=== PATIENT | male | born 1985 | race American Indian/Alaskan Native ===

== ENCOUNTER 2016-11-28 11:45 | Emergency (ER) | payer SELFPAY ==
--- NOTE | 2016-11-28 12:12 | Emergency Department Report ---
Stated Complaint: THROW UP Time Seen by Provider: 11/28/16 12:07 - HPI History of Present Illness: PT c/o n/v/d since 0500. PT states he is throwing up bile. - ROS Review of Systems: - back pain - fever + abd pain + n/v/d - Exam Physical Exam: PT alert and appropriate abd soft and non tender no cva tenderness prakash MSE screening note: Focused history and physical exam performed. Due to findings the following was ordered: labs, meds ED Disposition for MSE Condition: Stable
[2016-11-28] MEDS: ZOFRAN ODT PO ONE (12:18)
[2016-11-28 13:11] LABS: Bilirubin,Urine NEG (Negative); Blood,Urine NEG (Negative); Ketones,Urine 20 mg/dL (Negative); Leukocyte Esterase,Urine NEG (Negative); Mucus,Urine 3+ /HPF; Nitrite,Urine NEG (Negative)
[2016-11-28 15:10] LABS: Basophils % (Auto) 0.4 % (0.0-1.8); Hematocrit 48.3 % (35.5-45.6); Hemoglobin 16.8 gm/dl (11.8-15.2); Mean Corpuscular HGB Conc 35 % (32-34); Mean Corpuscular Hemoglobin 33 pg (28-32); Mean Corpuscular Volume 94 fl (84-94); Platelet Count 285 K/mm3 (140-440); Red Blood Count 5.16 M/mm3 (3.65-5.03); Red Cell Distribution Width 12.7 % (13.2-15.2); White Blood Count 10.6 K/mm3 (4.5-11.0)
[2016-11-28 15:21] LABS: Alanine Aminotransferase 25 units/L (7-56); Albumin 4.9 g/dL (3.9-5); Albumin/Globulin Ratio 1.4 %; Alkaline Phosphatase 85 units/L (35-129); Anion Gap 20 mmol/L; BUN/Creatinine Ratio 18; Blood Urea Nitrogen 16 mg/dL (9-20); Calcium 10.5 mg/dL (8.4-10.2); Carbon Dioxide 23 mmol/L (22-30); Chloride 101.4 mmol/L (98-107); Glucose 153 mg/dL (75-100); Lipase 11 units/L (13-60); Potassium 3.8 mmol/L (3.6-5.0); Sodium 141 mmol/L (137-145); Total Protein 8.5 g/dL (6.3-8.2)
[2016-11-28] MEDS: BENTYL IM ONE (18:36)
[2016-11-28] MEDS: ZOFRAN IV ONE (18:36)
[2016-11-28] MEDS: NACL 0.9% 1000 ML 1,000 ML IV ONE (18:36)
--- NOTE | 2016-11-28 20:40 | Emergency Department Report ---
ED N/V/D HPI - General Chief complaint: Nausea/Vomiting/Diarrhea Stated complaint: THROW UP Time Seen by Provider: 11/28/16 12:07 Source: patient Mode of arrival: Ambulatory Limitations: No Limitations - History of Present Illness Initial comments: pt is a 31 y/o aam with nmh who presents for n/v/d after eating left over spaghetti last night, pt states symptoms started approximatley 30 minutes after eating leftovers, pain was 4/10 abdomina cramping with n/v /d loose food contents. pt denies fever no chills no dizziness no lightheadedness. MD complaint: nausea, vomiting, diarrhea, abdominal pain Onset/Timin -: hour(s) Description of Vomiting: food contents Description of Diarrhea: water Associated Abdominal Pain: Yes (4/10 cramping ) Location: diffuse Radiation: none Severity: moderate Pain Scale: 4 Quality: cramping, aching Consistency: intermittent Improves with: none Worsens with: eating Context: possible food poisoning, other (" I believe the spaghetti was bad ) Associated Symptoms: denies: myalgias, chest pain, fever/chills, headaches, malaise, rash, dysuria, shortness of breath, syncope, weakness - Related Data Previous Rx's Medication Instructions Recorded Last Taken Type Dicyclomine [Bentyl] 10 mg PO QID PRN #30 capsule 11/28/16 Unknown Rx Ondansetron [Zofran TAB] 4 mg PO Q8HR PRN #12 tablet 11/28/16 Unknown Rx Allergies Allergy/AdvReac Type Severity Reaction Status Date / Time No Known Allergies Allergy Verified 11/28/16 12:17 ED Review of Systems ROS: Stated complaint: THROW UP Other details as noted in HPI Constitutional: denies: chills, fever Eyes: denies: eye pain, eye discharge, vision change ENT: denies: ear pain, throat pain Respiratory: denies: cough, shortness of breath, wheezing Cardiovascular: denies: chest pain, palpitations Endocrine: no symptoms reported Gastrointestinal: abdominal pain, nausea, vomiting, diarrhea. denies: constipation, hematemesis, melena, hematochezia Genitourinary: denies: urgency, dysuria Musculoskeletal: denies: back pain, joint swelling, arthralgia Skin: denies: rash, lesions Neurological: denies: headache, weakness, paresthesias Psychiatric: denies: anxiety, depression Hematological/Lymphatic: denies: easy bleeding, easy bruising ED Past Medical Hx - Past Medical History Previous Medical History?: No - Surgical History Past Surgical History?: No - Social History Smoking Status: Never Smoker Substance Use Type: None - Medications Home Medications: Home Medications Medication Instructions Recorded Confirmed Last Taken Type Dicyclomine [Bentyl] 10 mg PO QID PRN #30 capsule 11/28/16 Unknown Rx Ondansetron [Zofran TAB] 4 mg PO Q8HR PRN #12 tablet 11/28/16 Unknown Rx ED Physical Exam - General Limitations: No Limitations General appearance: alert, in no apparent distress - Head Head exam: Present: atraumatic, normocephalic - Eye Eye exam: Present: normal appearance - ENT ENT exam: Present: normal exam, normal orophraynx, mucous membranes moist - Neck Neck exam: Present: normal inspection, full ROM - Respiratory Respiratory exam: Present: normal lung sounds bilaterally. Absent: respiratory distress, wheezes, stridor - Cardiovascular Cardiovascular Exam: Present: regular rate, normal rhythm, normal heart sounds. Absent: systolic murmur, diastolic murmur, rubs, gallop - GI/Abdominal GI/Abdominal exam: Present: soft, normal bowel sounds. Absent: distended, tenderness, guarding, rebound, rigid, organomegaly, mass, bruit, pulsatile mass , hernia - Expanded GI/Abdominal Exam Expanded GI/Abdominal exam: Absent: psoas sign, obturator sign, heel tap sign, Montoya's sign, Rovsing's sign, tenderness at Mcburney's Point, ascites - Rectal Rectal exam: Present: deferred - Extremities Exam Extremities exam: Present: normal inspection, full ROM - Back Exam Back exam: Present: normal inspection - Neurological Exam Neurological exam: Present: alert, oriented X3 - Psychiatric Psychiatric exam: Present: normal affect, normal mood - Skin Skin exam: Present: warm, dry, intact, normal color. Absent: rash ED Course Vital Signs 11/28/16 12:14 Pulse Rate 69 Respiratory 18 Rate Blood Pressure 146/89 O2 Sat by Pulse 100 Oximetry ED Medical Decision Making - Lab Data Result diagrams: 11/28/16 12:11 11/28/16 12:11 Laboratory Tests 11/28/16 11/28/16 11/28/16 12:11 12:11 12:55 WBC 10.6 RBC 5.16 H Hgb 16.8 H Hct 48.3 H MCV 94 MCH 33 H MCHC 35 H RDW 12.7 L Plt Count 285 Lymph % (Auto) 13.3 L Cataño % (Auto) 6.4 Eos % (Auto) 0.0 Baso % (Auto) 0.4 Lymph # 1.4 Cataño # 0.7 Eos # 0.0 Baso # 0.0 Seg Neutrophils % 79.9 H Seg Neutrophils # 8.4 H Sodium 141 Potassium 3.8 Chloride 101.4 Carbon Dioxide 23 Anion Gap 20 BUN 16 Creatinine 0.9 Estimated GFR > 60 BUN/Creatinine Ratio 18 Glucose 153 H Calcium 10.5 H Total Bilirubin 0.90 AST 21 ALT 25 Alkaline Phosphatase 85 Total Protein 8.5 H Albumin 4.9 Albumin/Globulin Ratio 1.4 Lipase 11 L Urine Color Patricia Urine Turbidity Clear Urine pH 7.0 Ur Specific Purvis 1.038 H Urine Protein 30 mg/dl Urine Glucose (UA) 50 Urine Ketones 20 Urine Blood Neg Urine Nitrite Neg Urine Bilirubin Neg Urine Urobilinogen 2.0 Ur Leukocyte Esterase Neg Urine WBC (Auto) 3.0 Urine RBC (Auto) 8.0 U Epithel Cells (Auto) 1.0 Urine Mucus 3+ - Medical Decision Making pt is a 31 y/o aam with nmh who presents for n/v/d after eating left over spaghetti last night, pt states symptoms started approximately 30 minutes after eating leftovers, pain was 4/10 abdomina cramping with n/v /d loose food contents. pt denies fever no chills no dizziness no lightheadedness. exam: abd bs x 4 qds abd soft nontender no rebound no bruit no hernia no signs pt is currently tolerating po without n/v/d abdominal pain now 1/10 with after medications given in ed, pt appears well nontoxic plan: dc to home with roman layne hydration instructions brat diet, will follow up with primary care doctor on 3 days return to emergency if symptoms do not improve, pt verbalized agreement and understanding of discharge plan. Critical care attestation.: If time is entered above; I have spent that time in minutes in the direct care of this critically ill patient, excluding procedure time. ED Disposition Clinical Impression: Nausea vomiting and diarrhea Disposition: DC-01 TO HOME OR SELFCARE Is pt being admited?: No Does the pt Need Aspirin: No Condition: Good Instructions: Acute Nausea and Vomiting (ED) Prescriptions: Dicyclomine [Bentyl] 10 mg PO QID PRN #30 capsule PRN Reason: abdominal pain Ondansetron [Zofran TAB] 4 mg PO Q8HR PRN #12 tablet PRN Reason: nausea and vomiting Referrals: PRIMARY CARE, [Primary Care Provider] - 3-5 Days Forms: Work/School Release Form(ED) Time of Disposition: 20:47
[2016-11-28 22:05] VITALS: BP 139/88
== END 2016-11-28 20:50 | disposition home or self-care (01) ==
LOC: ED 11:45
DX: R11.2 Nausea with vomiting, unspecified (principal); R19.7 Diarrhea, unspecified; R10.84 Generalized abdominal pain
CPT/HCPCS: 36415; 80053; 81001; 83690; 85025; 96361; 96372; 96374; 99283; J0500; J2405; J7030; Q0162

== ENCOUNTER 2018-02-06 15:49 | Emergency (ER) | payer SELFPAY ==
[2018-02-06] MEDS ORDERED: TORADOL IV ONE (19:52)
[2018-02-06] MEDS ORDERED: ZOFRAN IV ONE (19:52)
[2018-02-06] MEDS ORDERED: NACL 0.9% 1000 ML 1,000 ML IV ONE (19:52)
[2018-02-06] MEDS ORDERED: LIDOCAINE VISCOUS 2% PO ONE (19:53)
[2018-02-06] MEDS ORDERED: ALUM-MAG HYDROX-SIMETH 200-200-20MG/5ML PO ONE (19:53)
--- NOTE | 2018-02-06 19:56 | Emergency Department Report ---
ED Abdominal Pain HPI - General Chief Complaint: Abdominal Pain Stated Complaint: ABD PAIN/VOMIT Time Seen by Provider: 02/06/18 19:31 Source: patient, family Mode of arrival: Ambulatory Limitations: No Limitations - History of Present Illness Initial Comments: This is a 32-year-old male here complaining of nausea vomiting and since 12:35 PM today. He denies any fever or chills. He reports that he is having in diarrhea. She reportedly vomited 10 times and he is having diarrhea stool every 3 hours. Denies any back pain, urinary burning, frequency or urgency. Denies any headache. Denies any cough or shortness of breath. Pain is 8 out of 10 and crampy to his abdomen, generalized. Pain is intermittent and no alleviating or exacerbating factors. MD Complaint: abdominal pain, other (nausea vomiting and diarrhea) -: This afternoon Location: diffuse Radiation: none Migration to: no migration Severity: severe Severity scale (0 -10): 8 Quality: cramping Consistency: intermittent Improves With: nothing Worsens With: nothing Context: possible food poisoning Associated Symptoms: nausea, vomiting, diarrhea. denies: fever, chills, constipation, dysuria, hematemesis, hematochezia, melena, hematuria, anorexia, syncope Treatments Prior to Arrival: other (none) - Related Data Previous Rx's Medication Instructions Recorded Last Taken Type Dicyclomine [Bentyl] 10 mg PO QID PRN #30 capsule 11/28/16 Unknown Rx Ondansetron [Zofran TAB] 4 mg PO Q8HR PRN #12 tablet 11/28/16 Unknown Rx Dicyclomine [Bentyl] 40 mg PO Q8H 3 Days #9 tablet 02/06/18 Unknown Rx Famotidine [Pepcid] 40 mg PO QDAY 10 Days #10 tablet 02/06/18 Unknown Rx Promethazine [Phenergan TAB] 25 mg PO Q6HR PRN #16 tab 02/06/18 Unknown Rx Allergies Allergy/AdvReac Type Severity Reaction Status Date / Time No Known Allergies Allergy Verified 02/06/18 16:34 ED Review of Systems ROS: Stated complaint: ABD PAIN/VOMIT Other details as noted in HPI Constitutional: denies: chills, fever Eyes: denies: eye discharge ENT: denies: ear pain, throat pain, congestion Respiratory: denies: cough, shortness of breath, wheezing Cardiovascular: denies: chest pain, palpitations, edema, syncope Gastrointestinal: abdominal pain, nausea, vomiting, diarrhea. denies: hematemesis, hematochezia Genitourinary: denies: urgency, dysuria, frequency, hematuria Musculoskeletal: denies: back pain, joint swelling, arthralgia, myalgia Skin: denies: rash Neurological: denies: headache, numbness, paresthesias, confusion, abnormal gait, vertigo ED Past Medical Hx - Past Medical History Previous Medical History?: No - Surgical History Past Surgical History?: No - Family History Family history: no significant - Social History Smoking Status: Never Smoker Substance Use Type: None - Medications Home Medications: Home Medications Medication Instructions Recorded Confirmed Last Taken Type Dicyclomine [Bentyl] 10 mg PO QID PRN #30 capsule 11/28/16 Unknown Rx Ondansetron [Zofran TAB] 4 mg PO Q8HR PRN #12 tablet 11/28/16 Unknown Rx Dicyclomine [Bentyl] 40 mg PO Q8H 3 Days #9 tablet 02/06/18 Unknown Rx Famotidine [Pepcid] 40 mg PO QDAY 10 Days #10 tablet 02/06/18 Unknown Rx Promethazine [Phenergan TAB] 25 mg PO Q6HR PRN #16 tab 02/06/18 Unknown Rx ED Physical Exam - General Limitations: No Limitations General appearance: alert, in no apparent distress - Head Head exam: Present: atraumatic, normocephalic, normal inspection - Eye Eye exam: Present: normal appearance, PERRL, EOMI Pupils: Present: normal accommodation - ENT ENT exam: Present: normal orophraynx, mucous membranes dry, TM's normal bilaterally, normal external ear exam - Neck Neck exam: Present: normal inspection, full ROM. Absent: tenderness, ly mphadenopathy - Respiratory Respiratory exam: Present: normal lung sounds bilaterally. Absent: respiratory distress, chest wall tenderness - Cardiovascular Cardiovascular Exam: Present: regular rate, normal rhythm, normal heart sounds - GI/Abdominal GI/Abdominal exam: Present: soft, normal bowel sounds. Absent: distended, tenderness, guarding, rebound, rigid, organomegaly, mass - Extremities Exam Extremities exam: Present: normal inspection, full ROM, normal capillary refill, other (No cce. + 2 pulses in all extremities, no neurovascular compromise). Absent: tenderness, pedal edema, joint swelling, calf tenderness - Back Exam Back exam: Present: normal inspection, full ROM, other (Ambulates without any difficulties). Absent: tenderness, CVA tenderness (R), CVA tenderness (L) - Neurological Exam Neurological exam: Present: alert, oriented X3, normal gait - Psychiatric Psychiatric exam: Present: normal affect, normal mood - Skin Skin exam: Present: warm, dry, intact, normal color. Absent: rash ED Course Vital Signs 02/06/18 16:34 Temperature 98.3 F Pulse Rate 61 Respiratory 18 Rate Blood Pressure 138/87 O2 Sat by Pulse 98 Oximetry - Reevaluation(s) Reevaluation #1: 02/06/18 21:24 She received Bentyl 40 mg by mouth, Maalox 30 mg, lidocaine 15 mL, 1 L of normal saline, Zofran 8 mg IV and he said he is feeling a lot better. Awaiting abdominal x-ray result. Reevaluation #2: 02/06/18 22:12 Patient says he is feeling a lot better. He has no abdominal pain and abdominal exam remains the same. He said he has a little nausea so he was given Phenergan 50 mg by mouth. Patient able to tolerate oral fluid in emergency room without a ny nausea vomiting or diarrhea. ED Medical Decision Making - Lab Data Result diagrams: 02/06/18 20:00 02/06/18 20:00 Lab Results 02/06/18 02/06/18 Range/Units 20:00 20:00 WBC 12.2 H (4.5-11.0) K/mm3 RBC 5.11 H (3.65-5.03) M/mm3 Hgb 16.3 H (11.8-15.2) gm/dl Hct 48.1 H (35.5-45.6) % MCV 94 (84-94) fl MCH 32 (28-32) pg MCHC 34 (32-34) % RDW 12.7 L (13.2-15.2) % Plt Count 276 (140-440) K/mm3 Lymph % (Auto) 11.6 L (13.4-35.0) % [place] % (Auto) 3.3 (0.0-7.3) % Eos % (Auto) 0.0 (0.0-4.3) % Baso % (Auto) 0.7 (0.0-1.8) % Lymph # 1.4 (1.2-5.4) K/mm3 [place] # 0.4 (0.0-0.8) K/mm3 Eos # 0.0 (0.0-0.4) K/mm3 Baso # 0.1 (0.0-0.1) K/mm3 Seg Neutrophils % 84.4 H (40.0-70.0) % Seg Neutrophils # 10.3 H (1.8-7.7) K/mm3 Sodium 143 (137-145) mmol/L Potassium 4.1 (3.6-5.0) mmol/L Chloride 102.2 (98-107) mmol/L Carbon Dioxide 24 (22-30) mmol/L Anion Gap 21 mmol/L BUN 17 (9-20) mg/dL Creatinine 1.0 (0.8-1.5) mg/dL Estimated GFR > 60 ml/min BUN/Creatinine Ratio 17 % Glucose 103 H (75-100) mg/dL Calcium 10.3 H (8.4-10.2) mg/dL Total Bilirubin 0.40 (0.1-1.2) mg/dL Direct Bilirubin < 0.2 (0-0.2) mg/dL Indirect Bilirubin 0.2 mg/dL AST 23 (5-40) units/L ALT 25 (7-56) units/L Alkaline Phosphatase 81 (35-129) units/L Total Protein 8.3 H (6.3-8.2) g/dL Albumin 5.0 (3.9-5) g/dL Albumin/Globulin Ratio 1.5 % Lipase 12 L (13-60) units/L - Radiology Data Radiology results: image reviewed interpreted by me: X-ray of abdomen [address] Thornton and myself. No bowel obstruction noted. Awaiting final report from radiologist - Medical Decision Making This is a 32-year-old male here reports that he started having nausea vomiting and diarrhea this afternoon. He is also having some abdominal cramping on and off. Patient was treated in the emergency room and he was given Bentyl, Zofran IV, Maalox, lidocaine and 1 L of IV fluids.He was also given Toradol 30 mg IV. Patient reports that he was feeling better and he had minimal nausea so he was given Phenergan 50 mg by mouth. Patient's CBC stable except minor elevation in white count at 12.2 with minimal bacterial shift. CMP is stable, lipase stable. Patient able to tolerate oral liquids. Patient instructed to follow up with his primary care physician in 2 days and if he does not have a primary care physician to follow-up at [facility]. Return to emergency room if his symptoms worsen. He agrees. Patient discharge home in stable condition, vital signs stable afebrile and pain is relieved. Discharged home with prescriptions for Bentyl, Phenergan, Pepcid. Sherrill diet encouraged. - Differential Diagnosis bowel obstruction, urinary tract infection, enteritis Critical care attestation.: If time is entered above; I have spent that time in minutes in the direct care of this critically ill patient, excluding procedure time. ED Disposition Clinical Impression: Enteritis, Nausea vomiting and diarrhea, Mild dehydration Abdominal pain Qualifiers: Abdominal location: generalized Qualified Code(s): R10.84 - Generalized abdominal pain Disposition: TO HOME OR SELFCARE Is pt being admited?: No Does the pt Need Aspirin: No Condition: Stable Instructions: Abdominal Pain (ED), Acute Nausea and Vomiting (ED), Acute Diarrhea (ED), Gastroenteritis (ED), Nutrition Tips for Relief of Diarrhea (ED), Dehydration (ED) Additional Instructions: Please utilize diet such as bananas, rice, applesauce and toast over the next 3 days. Drink plenty of fluids to include Gatorade and avoid spicy food, carbonated beverages to rest,. 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 Follow up primary care physician in 2 days and if he does not have a primary care physician follow-up at [facility] Referrals: PRIMARY CAREMD [Primary Care Provider] - 02/08/18 [facility] [Provider Group] - 02/08/18 [facility] [Outside] - 02/08/18 Forms: Work/School Release Form(ED)
[2018-02-06 20:16] LABS: Basophils # (Auto) 0.1 K/mm3 (0.0-0.1); Basophils % (Auto) 0.7 % (0.0-1.8); Hematocrit 48.1 % (35.5-45.6); Hemoglobin 16.3 gm/dl (11.8-15.2); Lymphocytes # (Auto) 1.4 K/mm3 (1.2-5.4); Lymphocytes % (Auto) 11.6 % (13.4-35.0); Mean Corpuscular HGB Conc 34 % (32-34); Mean Corpuscular Hemoglobin 32 pg (28-32); Mean Corpuscular Volume 94 fl (84-94); Monocytes # (Auto) 0.4 K/mm3 (0.0-0.8); Monocytes % (Auto) 3.3 % (0.0-7.3); Platelet Count 276 K/mm3 (140-440); Red Blood Count 5.11 M/mm3 (3.65-5.03); Red Cell Distribution Width 12.7 % (13.2-15.2)
[2018-02-06 20:37] LABS: Alanine Aminotransferase 25 units/L (7-56); BUN/Creatinine Ratio 17; Blood Urea Nitrogen 17 mg/dL (9-20); Calcium 10.3 mg/dL (8.4-10.2); Hemolysis Index 19; Lipase 12 units/L (13-60)
[2018-02-06 20:46] LABS: Bilirubin,Direct < 0.2 mg/dL (0-0.2)
[2018-02-06] MEDS ORDERED: BENTYL PO ONE (20:53)
[2018-02-06] MEDS ORDERED: PHENERGAN PO ONE (22:06)
--- NOTE | 2018-02-06 22:51 | XRay Report ---
FINAL REPORT PROCEDURE: Abdomen. TECHNIQUE: Portable supine and upright views. HISTORY: Nausea and vomiting, abdominal pain. COMPARISON: No prior studies are available for comparison. FINDINGS: The bowel gas pattern is normal. There are no signs of obstruction. There is no evidence of pneumoper itoneum. The soft tissues and regional skeleton are unremarkable. IMPRESSION: Normal study.
[2018-02-06 22:54] VITALS: BP 138/67
== END 2018-02-06 22:52 | disposition home or self-care (01) ==
LOC: ED 15:49
DX: E86.0 Dehydration (principal); K52.9 Noninfective gastroenteritis and colitis, unspecified
CPT/HCPCS: 36415; 74019; 80048; 80076; 83690; 85025; 96361; 96374; 96375; 99284; J1885; J2405; J7030; Q0169

== ENCOUNTER 2019-02-18 15:34 | Emergency (ER) | payer SELFPAY ==
[2019-02-18 16:07] VITALS: BP 143/96
[2019-02-18] MEDS ORDERED: IBUPROFEN 600 MG TAB PO ONE (18:53)
[2019-02-18] MEDS ORDERED: ACETAMINOPHEN 500 MG TAB PO ONE (18:53)
[2019-02-18] MEDS ORDERED: predniSONE 20 MG TAB PO ONE (18:53)
--- NOTE | 2019-02-18 19:21 | Emergency Department Report ---
ED Back Pain/Injury HPI - General Chief Complaint: Back Pain/Injury Stated Complaint: BACK PAIN/HEADACHE Source: patient Limitations: No Limitations - History of Present Illness Initial Comments: Patient is a 33-year-old -Turk[place] male with no past medical history who presents to the ED with complaint of acute onset persistent severe low back pain for the last 2 days. Patient also complains of headache for the last 12 hours. Patient's height states that his headache has resolved in the last 2 hours. Patient stated that he has been taking Tylenol to the onset of the low back pain with no relief. Patient states that his work involves being on his feet all day at work as a [employer] and that his symptoms began 2 days ago after having somewhat. Patient denies dizziness, hematuria, dysuria, traumatic injury, heavy lifting, fall, numbness and tingling or weakness of lower extremities bilaterally or urinary and bowel incontinence and saddle paresthesia. MD Complaint: back pain (lower back pain), other (headache) -: Sudden, days(s) (2) Similar Symptoms Previously: No Place: home Radiation: none Severity: severe Severity scale (0 -10): 7 Quality: sharp, aching Consistency: constant Improves With: none Worsens With: walking Context: turning/twisting, bending Associated Symptoms: denies other symptoms. denies: confusion, chest pain, numbness, difficulty walking, cough, difficulty urinating, diaphoresis, incontinence, constipation, abdominal pain, loss of appetite, nausea/vomiting, seizure, shortness of breath, syncope, other - Related Data Previous Rx's Medication Instructions Recorded Last Taken Type Dicyclomine [Bentyl] 10 mg PO QID PRN #30 capsule 11/28/16 Unknown Rx Ondansetron [Zofran TAB] 4 mg PO Q8HR PRN #12 tablet 11/28/16 Unknown Rx Dicyclomine [Bentyl] 40 mg PO Q8H 3 Days #9 tablet 02/06/18 Unknown Rx Famotidine [Pepcid] 40 mg PO QDAY 10 Days #10 tablet 02/06/18 Unknown Rx Promethazine [Phenergan TAB] 25 mg PO Q6HR PRN #16 tab 02/06/18 Unknown Rx Cyclobenzaprine [Flexeril] 10 mg PO Q8H PRN #21 tablet 02/18/19 Unknown Rx Naproxen 500 mg PO Q12H PRN #24 tablet 02/18/19 Unknown Rx predniSONE [Deltasone] 40 mg PO QDAY #10 tab 02/18/19 Unknown Rx Allergies Allergy/AdvReac Type Severity Reaction Status Date / Time No Known Allergies Allergy Verified 02/06/18 16:34 ED Review of Systems ROS: Stated complaint: BACK PAIN/HEADACHE Other details as noted in HPI Constitutional: denies: chills, fever Eyes: denies: eye pain, eye discharge, vision change ENT: denies: ear pain, throat pain Respiratory: denies: cough, shortness of breath, wheezing Cardiovascular: denies: chest pain, palpitations Endocrine: no symptoms reported Gastrointestinal: denies: abdominal pain, nausea, diarrhea Genitourinary: denies: urgency, dysuria Musculoskeletal: back pain (lower back pain), arthralgia, myalgia. denies: joint swelling Skin: denies: rash, lesions Neurological: denies: headache, weakness, paresthesias Psychiatric: denies: anxiety, depression Hematological/Lymphatic: denies: easy bleeding, easy bruising ED Past Medical Hx - Social History Smoking Status: Never Smoker Substance Use Type: None - Medications Home Medications: Home Medications Medication Instructions Recorded Confirmed Last Taken Type Dicyclomine [Bentyl] 10 mg PO QID PRN #30 capsule 11/28/16 Unknown Rx Ondansetron [Zofran TAB] 4 mg PO Q8HR PRN #12 tablet 11/28/16 Unknown Rx Dicyclomine [Bentyl] 40 mg PO Q8H 3 Days #9 tablet 02/06/18 Unknown Rx Famotidine [Pepcid] 40 mg PO QDAY 10 Days #10 tablet 02/06/18 Unknown Rx Promethazine [Phenergan TAB] 25 mg PO Q6HR PRN #16 tab 02/06/18 Unknown Rx Cyclobenzaprine [Flexeril] 10 mg PO Q8H PRN #21 tablet 02/18/19 Unknown Rx Naproxen 500 mg PO Q12H PRN #24 tablet 02/18/19 Unknown Rx predniSONE [Deltasone] 40 mg PO QDAY #10 tab 02/18/19 Unknown Rx ED Physical Exam - General Limitations: No Limitations General appearance: alert, in no apparent distress - Head Head exam: Present: atraumatic, normocephalic, normal inspection - Eye Eye exam: Present: normal appearance, PERRL, EOMI Pupils: Present: normal accommodation - ENT ENT exam: Present: normal exam, normal orophraynx, mucous membranes moist, TM's normal bilaterally, normal external ear exam - Neck Neck exam: Present: normal inspection, full ROM - Respiratory Respiratory exam: Present: normal lung sounds bilaterally. Absent: respiratory distress, wheezes, rales, rhonchi, chest wall tenderness, accessory muscle use, prolonged expiratory - Cardiovascular Cardiovascular Exam: Present: regular rate, normal rhythm, normal heart sounds. Absent: systolic murmur, diastolic murmur, rubs, gallop - GI/Abdominal GI/Abdominal exam: Present: soft, normal bowel sounds. Absent: tenderness, guarding, rebound, rigid, hyperactive bowel sounds, hypoactive bowel sounds, organomegaly - Extremities Exam Extremities exam: Present: normal inspection, full ROM, normal capillary refill - Back Exam Back exam: Present: normal inspection, full ROM, tenderness (Palpable lumbosa cral musculoskeletal paraspinal tenderness), muscle spasm, paraspinal tenderness - Neurological Exam Neurological exam: Present: alert, oriented X3, CN II-XII intact, normal gait, reflexes normal - Psychiatric Psychiatric exam: Present: normal affect, normal mood - Skin Skin exam: Present: warm, dry, intact, normal color. Absent: rash ED Course Vital Signs 02/18/19 16:04 Temperature 98.6 F Pulse Rate 67 Respiratory 18 Rate Blood Pressure 143/96 O2 Sat by Pulse 98 Oximetry ED Medical Decision Making - Medical Decision Making This is a 33-year-old male presented to the ED with acute onset persistent nontraumatic low back pain for 2 days. In the ED, patient is alert and oriented 3 and is not in distress but appears to be in pain. Patient was treated for pain in the ED and on reevaluation, patient's pain is well-controlled with medications. Patient was discharged home on prescriptions of pain medications and muscle relaxants and was advised to follow-up with his primary care physician in 7-10 days for reevaluation or return to the ED immediately if symptoms get worse. - Differential Diagnosis muscle spasm; muscle strain; low back pain Critical care attestation.: If time is entered above; I have spent that time in minutes in the direct care of this critically ill patient, excluding procedure time. ED Disposition Clinical Impression: Spasm of muscle of lower back Acute low back pain Qualifiers: Back pain laterality: unspecified Sciatica presence: without sciatica Qualified Code(s): M54.5 - Low back pain Disposition: TO HOME OR SELFCARE Is pt being admited?: No Does the pt Need Aspirin: No Condition: Stable Instructions: Muscle Strain (ED), Acute Low Back Pain (ED), Musculoskeletal Pain (ED), Muscle Spasm (ED) Additional Instructions: Take medications with food, drink plenty of fluids and follow up with your Primary care Physician in 7-10 days for further reevaluation. Return to the ED immediately if symptoms get worse. Prescriptions: predniSONE [Deltasone] 40 mg PO QDAY #10 tab Cyclobenzaprine [Flexeril] 10 mg PO Q8H PRN #21 tablet PRN Reason: Muscle Spasm Naproxen 500 mg PO Q12H PRN #24 tablet PRN Reason: Pain , Severe (7-10) Referrals: HOLGER PARRISH MD [Staff Physician] - 7-10 days Time of Disposition: 19:25 Print Language: CYPRIOT
== END 2019-02-18 20:15 | disposition home or self-care (01) ==
LOC: ED 15:34
DX: M62.830 Muscle spasm of back (principal); Z79.899 Other long term (current) drug therapy
CPT/HCPCS: 99282; J7512